=== PATIENT | male | born 1955 | race Caucasian/White ===

== ENCOUNTER 2024-09-03 20:13 | Inpatient (IN) | payer MEDICAID, MEDICARE ==
[~2024-09-03] VITALS: Ht 162.6 cm; Wt 86.8 kg
[~2024-09-03 20:13] MED LIST: ALBU2.5V12 NEB; ALBU6.7H14 INH; AMLO10TA PO; ASPI-611 PO; BENA40TA90 PO; CARV-49 PO; CITA20TA2 PO; HYDR-4353 PO; HYDR12.5 PO; LANTUS SQ; LORA10TA7 PO; MELO-102 PO; NIA500ERT PO; OMEP20TA43 PO; SIMV-45 PO; ZOLP10TA5 PO
--- NOTE | 2024-09-03 20:24 | ELECTROCARDIOGRAPH REPORT ---
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
[2024-09-03 20:46] LABS: BASOPHILS # (AUTO) 0.1 X10'3 (0-0.2); BASOPHILS % (AUTO) 1.3 % (0-1); EOSINOPHILS # (AUTO) 0.2 X10'3 (0-0.9); EOSINOPHILS % (AUTO) 2.4 % (0-6); HEMATOCRIT 42.9 % (42.0-52.0); HEMOGLOBIN 14.1 g/dl (14.0-17.9); LYMPHOCYTES # (AUTO) 2.4 X10'3 (1.1-4.8); LYMPHOCYTES % (AUTO) 30.4 % (21-51); MEAN CORPUSCULAR HEMOGLOBIN 25.5 PG (27.0-31.0); MEAN CORPUSCULAR HGB CONC 32.8 g/dL (33.0-36.5); MEAN CORPUSCULAR VOLUME 77.9 FL (78-98); MEAN PLATELET VOLUME 8.2 FL (7.4-10.4); MONOCYTES # (AUTO) 0.4 X10'3 (0-0.9); MONOCYTES % (AUTO) 5.5 % (2-12); NEUTROPHILS # (AUTO) 4.7 X10'3 (1.8-7.7); NEUTROPHILS % (AUTO) 60.4 % (42-75); PLATELET COUNT 327 X10'3 (140-440); RED BLOOD COUNT 5.51 X10'6 (4.70-6.10); RED CELL DISTRIBUTION WIDTH 16.2 % (11.5-14.5); WHITE BLOOD COUNT 7.8 X10'3 (4.5-11.0)
--- NOTE | 2024-09-03 20:54 | RADIOLOGY REPORT ---
CHEST RADIOGRAPH Indication: CP Technique: Single frontal view of the chest was obtained COMPARISON: None FINDINGS: Lines and Tubes: None. Sternotomy and CABG. Lungs: Clear Pleura: No effusion. No pneumothorax. Cardiomediastinal contours: Unremarkable IMPRESSION: No acute disease.
[2024-09-03 21:07] LABS: ALANINE AMINOTRANSFERASE 17 U/L (12-78); ALBUMIN 3.6 G/DL (3.4-5.0); ALBUMIN/GLOBULIN RATIO 0.9 (1.1-1.5); ALKALINE PHOSPHATASE 77 IU/L (46-116); ANION GAP 8 (8-16); ASPARTATE AMINO TRANSFERASE 17 U/L (10-37); BILIRUBIN,TOTAL 0.3 MG/DL (0.1-1.0); BLOOD UREA NITROGEN 18 MG/DL (7-18); BUN/CREATININE RATIO 19.4 (10.0-20.0); CALCIUM 8.7 MG/DL (8.5-10.1); CHLORIDE 99 MMOL/L (99-107); CREATININE 0.93 MG/DL (0.60-1.10); GLUCOSE 197 MG/DL (70-104); PRO BRAIN NATRIURETIC PEPTIDE 601 PG/ML (0-125); SODIUM 138 MMOL/L (135-145); TOTAL CARBON DIOXIDE 31.3 MMOL/L (24-32); TOTAL PROTEIN 7.4 G/DL (6.4-8.2); eGFR 81 ML/MIN
[2024-09-03 21:23] LABS: POTASSIUM 2.8 MMOL/L (3.5-5.1)
[2024-09-03] MEDS: Potassium Cl inj 40 MEQ in normal saline 500ml IV soln 500 ML IV STA (22:44)
--- NOTE | 2024-09-03 22:46 | ELECTROCARDIOGRAPH REPORT ---
[facility] Test Date: 2024-09-03 Test Time: 22:44:02 Pat Name: CIERA NAYAK Department: EMERGENCY ROOM [id number] Room: Gender: M Truck Rental Service Attendant: : 1955 Requested By: JUAN WAKEFIELD Order Number: [id number] Reading MD: Measurements Intervals [place] Rate: 83 P: 25 [place]: 160 QRS: 118 QRSD: 123 T: 33 QT: 395 QTc: 465 Interpretive Statements Sinus rhythm Paired ventricular premature complexes Aberrant complex Nonspecific intraventricular conduction delay Abnormal T, consider ischemia, lateral leads Please click the below link to view image of tracing.
[2024-09-03] MEDS: magnesium sulf-water 2g/50mL 50 ML IV STA (22:49)
[2024-09-03] MEDS: potassium CL 10mEq/100ml bag 100 ML IV STA (22:53)
[2024-09-03] MEDS: amiodarone 150mg/dext, iso-os 100 ML IV ONE (22:58)
--- NOTE | 2024-09-03 23:01 | Physician Documentation ---
History of Present Illness ~ Chief Complaint: Chest Pain Stated Complaint: CHEST PAIN Time Seen by MD: 22:53 HPI 69-year-old male, history of CAD/CABG, who presents with chest pain The patient tells me that he actually has been out of some of his heart medications over the past couple of weeks. He has been having intermittent episodes of chest pain and dizziness. I was called emergently to his room for evaluation, because he was in an episode of ventricular tachycardia. At that time he reported feeling very lightheaded and sweaty. He was reporting some central chest pressure. He later denies any fevers, or other infectious symptoms. He denies any current shortness of breath or leg swelling. He does not have an ICD Medication Reconciliation Allergies: Coded Allergies: No Known Allergies (Unverified , 05/24/14) Scheduled Albuterol Sulfate (Albuterol Sulfate), 1 VIAL NEB Q4H, (Reported) Albuterol Sulfate (Proventil Hfa), 2 PUFFS INH Q4H, (Reported) Amlodipine Besylate (Amlodipine Besylate), 1 TABLET PO DAILY, (Reported) Aspirin (Aspir 81), 1 TABLET PO DAILY, (Reported) Benazepril HCl (Benazepril HCl), 1 TABLET PO DAILY, (Reported) Carvedilol (Coreg), 1 TAB PO BID, (Reported) Citalopram Hydrobromide (Citalopram Hbr), 1 TABLET PO DAILY, (Reported) Hydrochlorothiazide (Hydrochlorothiazide), 1 CAP PO DAILY, (Reported) Hydrocodone Bit/Acetaminophen ([place] 10-325 Tablet), 1-2 TABLET PO Q4H, (Reported) Insulin Glargine,Hum.rec.anlog (Lantus Solostar), 25 UNIT SQ DAILY, (Reported) Loratadine (Loratadine), 1 TABLET PO DAILY, (Reported) Meloxicam (Meloxicam), 1 TABLET PO DAILY, (Reported) Niacin* (Niaspan*), 1 TAB PO BID, (Reported) Omeprazole (Omeprazole), 20 MG PO BID, (Reported) Simvastatin (Simvastatin), 40 MG PO DAILY, (Reported) Sulfamethoxazole/Trimethoprim (Bactrim Ds Tablet), 1 TAB PO Q12H Scheduled PRN Zolpidem Tartrate* (Ambien*), 1 TAB PO HS PRN for sleep, (Reported) Review of Systems Respiratory: Denies: shortness of breath Cardiovascular: Reports: chest pain, diaphoresis Gastrointestinal: Denies: abdominal pain Unable to obtain complete ROS: medical urgency Physical Exam Vital Signs: Temperature: 98.5, Heart Rate: 91, Respiratory Rate: 16, BP: 169/93, Pulse Oximetry: 96 Oxygen Flow Rate: 0 Physical Exam General: This is a chronically ill-appearing middle-aged man, who is currently in ventricular tachycardic, appears diaphoretic and unwell HEENT: Atraumatic, oropharynx appears dry Heart: Tachycardic, appears regular, appears ventricular tachycardia on the monitor with a heart rate in the 160s to 180s. Later, the patient spontaneously converts to normal sinus rhythm in the 80s to 90s. Lungs: Clear breath sounds bilateral, normal work of breathing, normal oxygen saturation on room air Abdomen: Soft, nondistended Skin: Diaphoretic and cool Neuro: Alert and oriented, no focal deficits Psychiatric: Appears uncomfortable but is cooperative with exam Progress Results/Orders Results/Orders Orders - DANNY THOMSON MD Chest,Single View (09/03/24 20:23) Monitor (09/03/24 20:23) Saline Lock (09/03/24 20:23) Oxygen (09/03/24 20:23) Hs Troponin I W Calculations (09/03/24 23:23) Amiodarone/D5 360mg/200ml Bag (Nexterone (09/03/24 23:15) Page Hospitalist (09/03/24 23:56) Completed Orders - DANNY THOMSON MD Chest,Single View (09/03/24 20:23) Cbc/Diff (09/03/24 20:23) PBNP (09/03/24 20:23) Electrocardiogram (09/03/24 20:23) CMP (09/03/24 20:23) Hs Troponin I W Calculations (09/03/24 20:23) Hs Troponin I W Calculations (09/03/24 22:23) Potassium Cl 10meq/100ml Bag (Potassium (09/03/24 22:43) Magnesium Sulf-Water 2g/50ml (Magnesium (09/03/24 22:44) Potassium Cl Inj (Potassium Cl Inj) (09/03/24 22:44) Free T4 (09/03/24 20:36) MG (09/03/24 20:36) TSH (09/03/24 20:36) Amiodarone 150mg/Dext, Iso-Os (Nexterone (09/03/24 22:55) Sulfamethox/Trimetho. Ds Tab (Septra Ds (09/03/24 23:40) Aspirin 81mg Chew Tablet (Aspirin 81mg C (09/04/24 00:21) Amiodarone 150mg/Dext, Iso-Os (Nexterone (09/04/24 00:25) Nicotine 14mg Patch-24hr (Habitrol Patch (09/04/24 00:25) Potassium Cl 40meq/1/2ns 520ml ([place] (09/04/24 00:25) Potassium Cl 40meq/1/2ns 520ml ([place] (09/04/24 00:29) BMP (09/04/24 02:00) Potassium Cl Sr Tablet (K-Dur Tablet) (09/04/24 02:50) Medications Received in ER Medications (Trade) Dose Ordered Sig/Brannon Route PRN Reason Start Time Stop Time Status Last Admin Dose Admin Potassium Chloride 100 ml @ 100 mls/hr ONCE STAT IV 09/03/24 22:43 09/03/24 23:42 DC 09/03/24 22:53 100 MLS/HR Magnesium Sulfate 50 ml @ 25 mls/hr ONCE STAT IV 09/03/24 22:44 09/04/24 00:43 DC 09/03/24 22:49 25 MLS/HR Amiodarone HCL/ Dextrose 100 ml @ 600 mls/hr ONCE ONCE IV 09/03/24 22:55 09/03/24 23:04 DC 09/03/24 22:58 600 MLS/HR Amiodarone HCL/ Dextrose 200 ml @ 0 mls/hr Q0M IV 09/03/24 23:15 09/04/24 05:38 17 MLS/HR (aspirin 81MG chew tablet) 324 mg ONCE STAT PO 09/04/24 00:21 09/04/24 00:22 DC 09/04/24 00:26 324 MG (Habitrol patch) 1 patch ONCE ONCE TD 09/04/24 00:25 09/04/24 00:26 DC 09/04/24 00:35 1 PATCH Potassium Chloride 520 ml @ ud STK-MED ONCE IV 09/04/24 00:25 09/04/24 04:24 DC 09/04/24 00:43 130 MLS/HR (K-DUR tablet) 40 meq ONCE STAT PO 09/04/24 02:50 09/04/24 02:58 DC 09/04/24 03:38 40 MEQ Vital Signs 09/03/24 09/03/24 09/04/24 09/04/24 20:23 21:26 02:01 02:02 Temp 98.5 98.5 Pulse 96 91 69 Resp 16 16 16 B/P (MAP) 154/66 169/93 (118) 101/81 (88) Pulse Ox 98 96 98 O2 Flow Rate 0 0 0 09/04/24 03:40 Temp 98.5 Pulse 66 Resp 14 B/P (MAP) 165/80 (108) Pulse Ox 97 O2 Flow Rate 0 Laboratory Tests Test 09/03/24 20:36 09/03/24 22:26 09/03/24 22:49 09/04/24 01:19 White Blood Count 7.8 Red Blood Count 5.51 Hemoglobin 14.1 Hematocrit 42.9 Mean Corpuscular Volume 77.9 L Mean Corpuscular Hemoglobin 25.5 L Mean Corpuscular Hemoglobin Concent 32.8 L Red Cell Distribution Width 16.2 H Platelet Count 327 Mean Platelet Volume 8.2 Neutrophils (%) (Auto) 60.4 Lymphocytes (%) (Auto) 30.4 Monocytes (%) (Auto) 5.5 Eosinophils (%) (Auto) 2.4 Basophils (%) (Auto) 1.3 H Neutrophils # (Auto) 4.7 Lymphocytes # (Auto) 2.4 Monocytes # (Auto) 0.4 Eosinophils # (Auto) 0.2 Basophils # (Auto) 0.1 CBC Comment Sodium Level 138 Potassium Level 2.8 *L Chloride Level 99 Carbon Dioxide Level 31.3 Anion Gap 8 Blood Urea Nitrogen 18 Creatinine 0.93 Estimated GFR/1.73 m2 81 BUN/Creatinine Ratio 19.4 Glucose Level 197 H Calcium Level 8.7 Magnesium Level 2.0 Total Bilirubin 0.3 Aspartate Amino Transf (AST/SGOT) 17 Alanine Aminotransferase (ALT/SGPT) 17 Alkaline Phosphatase 77 Troponin I High Sensitivity 28 30 33 Pro-B-Type Natriuretic Peptide 601 H Total Protein 7.4 Albumin 3.6 Globulin 3.8 Albumin/Globulin Ratio 0.9 L Thyroid Stimulating Hormone (TSH) 1.77 Free Thyroxine 0.93 Chemistry Comments Troponin I High Sens Percent Delta 7 10 Troponin I Hi Sens Absolute Change 2 3 Prothrombin Time 10.7 INR International Normalized Ratio 1.0 Activated Partial Thromboplast Time 25 D-Dimer 0.35 D-Dimer Comment Coagulation Comments Test 09/04/24 02:12 Sodium Level 139 Potassium Level 2.9 *L Chloride Level 101 Carbon Dioxide Level 31.9 Anion Gap 6 L Blood Urea Nitrogen 14 Creatinine 0.82 Estimated GFR/1.73 m2 > 90 BUN/Creatinine Ratio 17.1 Glucose Level 121 H Calcium Level 8.2 L Troponin I High Sensitivity 35 Troponin I High Sens Percent Delta 6 Troponin I Hi Sens Absolute Change 2 Albumin 3.4 Chemistry Comments EKG/XRAY/CT/US/VASC/MRI Chest X-Ray : Additional Comments I personally reviewed the x-ray, and it shows: No acute consolidation, no mediastinal widening, no pulmonary edema Consults/PCP Consults/PCP : Additional Comment Consult: 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 He requests a cardiology consult Consult: I spoke to the on-call machine heddle cleaner. He agrees with amiodarone, re commends lidocaine as a second-line agent for refractory ventricular tachycardia. He is concerned that we do not have an manager pricing here, and recommends considering transfer to higher level of care if possible for admission with EP consult. Consult: I spoke to the charge nurse and ER physician at emergency department in [place]. I discussed the case. They state that they do not have an on-call manager pricing. They feel that he will be more reasonable for the patient be admitted to our hospital, for treatment and electrolyte repletion. If transfer as needed at a later time, they recommend having our machine heddle cleaner co nsult their machine heddle cleaner to determine if a higher level of care is needed. Consult: I spoke again to the nighttime truck loader, who agrees for admission in the ICU. Medical Decision Making Differential Dx:Considerations: Include: angina, aortic dissection, CHF, myocardial infarction, pulmonary embolus Additional Information Differential includes dysrhythmia, electrolyte derangement, medication reaction Assessment 69-year-old male, significant cardiac history, presenting with chest pain and dizziness. Here in the ED, the patient had recurrent episodes of sustained ventricular tachycardia, where he was symptomatic but did not lose consciousness. He was treated with magnesium and amiodarone. Labs returned with significant hypokalemia and he was given IV and oral potassium repletion. He continued to have sustained ventricular tachycardia episodes, and so he was given a 2nd loading dose of amiodarone and was on an amiodarone drip. Labs otherwise unremarkable including normal troponins and no evidence of STEMI or acute coronary syndrome. See consults above. Ultimately, the patient was admitted here to the ICU for further treatment. Departure Time of Disposition: 23:38 Disposition: ADMITTED INPATIENT Admitted to Inpatient Unit: to truck loader Impression: Primary Impression: Ventricular tachycardia (paroxysmal) Additional Impressions: Chest pain Hypokalemia Condition: Improved Referrals: NO PRIMARY CARE PROVIDER (PCP) Education Educated: Patient, Family Educated regarding: diagnosis, treatment Critical Care Note Critical Care Note Critical Care Note The very real possibility of a deterioration of this patient's condition r equired the highest level of my preparedness for sudden, emergent intervention. I provided critical care services, which included medication orders, frequent reevaluations of the patient's condition and response to treatment, ordering and reviewing test results, and discussing the case with various consultants. Excludes time spent performing separately billable procedures. The critical care time associated with the care of the patient was 65 minutes in the management of recurrent ventricular tachycardia and imminent cardiac arrest Signature Scribe Signature: torsten Attestation: DANNY Odell MD September 03, 2024 23:01
[2024-09-03 23:11] LABS: APTT 25 SECONDS (22-32); D-DIMER 0.35 MG/L FEU (0-0.50); PROTHROMBIN TIME 10.7 SECONDS (9.0-12.0)
[2024-09-03 23:15] LABS: FREE T4 (FREE THYROXINE) 0.93 NG/DL (0.73-1.40); THYROID STIMULATING HORMONE 1.77 ulU/ml (0.34-4.50)
[2024-09-03] MEDS: amiodarone/D5 360MG/200ML BAG 200 ML IV SCH (23:15)
[2024-09-03] MEDS ORDERED: SULF1TAB49 PO (23:40)
[2024-09-03] MEDS ORDERED: sulfamethoxazole/trimethoprim DS (800/160mg) tablet PO ONE (23:40)
[2024-09-03] MEDS: sulfamethoxazole/trimethoprim DS (800/160mg) tablet PO ONE (23:46)
[2024-09-04] VITALS (13 sets, daily range): BP systolic 120–161; BP diastolic 49–65; PULSE 57–74; RESP 12–18; TEMP 97.4–97.9; O2SAT 95–99
[2024-09-04] MEDS: amiodarone 150mg/dext, iso-os 100 ML IV ONE (00:25)
[2024-09-04] MEDS: aspirin 81mg tab.chew PO STA (00:26)
[2024-09-04] MEDS: potassium Cl 40MEQ/1/2NS 520ml 520 ML IV ONE ×2 (00:29→00:43)
[2024-09-04] MEDS: nicotine 14mg patch - 24hr TD ONE (00:35)
[2024-09-04 02:28] LABS: ALBUMIN 3.4 G/DL (3.4-5.0); ANION GAP 6 (8-16); BLOOD UREA NITROGEN 14 MG/DL (7-18); BUN/CREATININE RATIO 17.1 (10.0-20.0); CALCIUM 8.2 MG/DL (8.5-10.1); CHLORIDE 101 MMOL/L (99-107); CREATININE 0.82 MG/DL (0.60-1.10); GLUCOSE 121 MG/DL (70-104); SODIUM 139 MMOL/L (135-145); TOTAL CARBON DIOXIDE 31.9 MMOL/L (24-32); eGFR > 90 ML/MIN
[2024-09-04 02:33] LABS: POTASSIUM 2.9 MMOL/L (3.5-5.1)
[2024-09-04] MEDS: potassium Cl 20 mEq SR tablet PO STA (03:38)
[2024-09-04] MEDS ORDERED: magnesium Cl slow-release 64mg tablet PO PRN (04:25)
[2024-09-04] MEDS ORDERED: magnesium sulf-water 4G/100mL 100 ML IV PRN (04:25)
[2024-09-04] MEDS ORDERED: potassium Cl 20 mEq SR tablet PO PRN ×2 (04:25→08:00)
[2024-09-04] MEDS ORDERED: magnesium sulf-water 2g/50mL 50 ML IV PRN ×2 (04:25→08:00)
[2024-09-04] MEDS ORDERED: potassium Cl 40MEQ/1/2NS 520ml 520 ML IV PRN (04:25)
[2024-09-04] MEDS: PERFLUTREN PROTEIN-A MICROSPHR (Optison) 0.22 MG/ML 3ML VIAL IV ONE (04:40)
--- NOTE | 2024-09-04 05:03 | CONSULTATION REPORT - RESIDENT ---
Consult Providers to CC Resident Creating Document: OBDULIO GENAO MD CC: OBDULIO GENAO MD 69 M with an extensive cardiac hx we are seeining in the ER today Said to be having runs of VTach when he was put on the traffic monitor specialist He has been complaining of chest pain and some shortness of breath He has CAD and has had CABG and a hx of CHF As pe the patient he had been off his meds for a month He was complaining of feeling dizzy and havbing chest tightness at the time he was seen in the ER He was found to have severe hypokalemia He was replaced for K in the interval since he came to the hospital he has received 90 meq of K He got an amiodarone bolus and started on a drip He has had the drip run for 6 hours I saw him by the viodeo He says he is feeling better. He says he did have some chest tightness at the time he was first seen in the ER but it is getting beter. He is hemodynamically stable Laboratory Tests Test 09/03/24 20:36 09/03/24 22:26 09/03/24 22:49 09/04/24 01:19 White Blood Count 7.8 X10'3 (4.5-11.0) Red Blood Count 5.51 X10'6 (4.70-6.10) Hemoglobin 14.1 g/dl (14.0-17.9) Hematocrit 42.9 % (42.0-52.0) Mean Corpuscular Volume 77.9 FL (78-98) Mean Corpuscular Hemoglobin 25.5 PG (27.0-31.0) Mean Corpuscular Hemoglobin Concent 32.8 g/dL (33.0-36.5) Red Cell Distribution Width 16.2 % (11.5-14.5) Platelet Count 327 X10'3 (140-440) Mean Platelet Volume 8.2 FL (7.4-10.4) Neutrophils (%) (Auto) 60.4 % (42-75) Lymphocytes (%) (Auto) 30.4 % (21-51) Monocytes (%) (Auto) 5.5 % (2-12) Eosinophils (%) (Auto) 2.4 % (0-6) Basophils (%) (Auto) 1.3 % (0-1) Neutrophils # (Auto) 4.7 X10'3 (1.8-7.7) Lymphocytes # (Auto) 2.4 X10'3 (1.1-4.8) Monocytes # (Auto) 0.4 X10'3 (0-0.9) Eosinophils # (Auto) 0.2 X10'3 (0-0.9) Basophils # (Auto) 0.1 X10'3 (0-0.2) CBC Comment Sodium Level 138 MMOL/L (135-145) Potassium Level 2.8 MMOL/L (3.5-5.1) Chloride Level 99 MMOL/L (99-107) Carbon Dioxide Level 31.3 MMOL/L (24-32) Anion Gap 8 (8-16) Blood Urea Nitrogen 18 MG/DL (7-18) Creatinine 0.93 MG/DL (0.60-1.10) Estimated GFR/1.73 m2 81 ML/MIN BUN/Creatinine Ratio 19.4 (10.0-20.0) Glucose Level 197 MG/DL (70-104) Calcium Level 8.7 MG/DL (8.5-10.1) Magnesium Level 2.0 MG/DL (1.5-2.4) Total Bilirubin 0.3 MG/DL (0.1-1.0) Aspartate Amino Transf (AST/SGOT) 17 U/L (10-37) Alanine Aminotransferase (ALT/SGPT) 17 U/L (12-78) Alkaline Phosphatase 77 IU/L (46-116) Troponin I High Sensitivity 28 ng/L (4-75) 30 ng/L (4-75) 33 ng/L (4-75) Pro-B-Type Natriuretic Peptide 601 PG/ML (0-125) Total Protein 7.4 G/DL (6.4-8.2) Albumin 3.6 G/DL (3.4-5.0) Globulin 3.8 G/DL (2.7-4.3) Albumin/Globulin Ratio 0.9 (1.1-1.5) Thyroid Stimulating Hormone (TSH) 1.77 ulU/ml (0.34-4.50) Free Thyroxine 0.93 NG/DL (0.73-1.40) Chemistry Comments Troponin I High Sens Percent Delta 7 % 10 % Troponin I Hi Sens Absolute Change 2 ng/L 3 ng/L Prothrombin Time 10.7 SECONDS (9.0-12.0) INR International Normalized Ratio 1.0 INR Activated Partial Thromboplast Time 25 SECONDS (22-32) D-Dimer 0.35 MG/L FEU (0-0.50) D-Dimer Comment Coagulation Comments Test 09/04/24 02:12 Sodium Level 139 MMOL/L (135-145) Potassium Level 2.9 MMOL/L (3.5-5.1) Chloride Level 101 MMOL/L (99-107) Carbon Dioxide Level 31.9 MMOL/L (24-32) Anion Gap 6 (8-16) Blood Urea Nitrogen 14 MG/DL (7-18) Creatinine 0.82 MG/DL (0.60-1.10) Estimated GFR/1.73 m2 > 90 ML/MIN BUN/Creatinine Ratio 17.1 (10.0-20.0) Glucose Level 121 MG/DL (70-104) Calcium Level 8.2 MG/DL (8.5-10.1) Troponin I High Sensitivity 35 ng/L (4-75) Troponin I High Sens Percent Delta 6 % Troponin I Hi Sens Absolute Change 2 ng/L Albumin 3.4 G/DL (3.4-5.0) Chemistry Comments History of Present Illness Reason for Admit\Complaint: Vtach History of Present Illness 69 M with an extensive cardiac hx we are seeining in the ER today Said to be having runs of VTach when he was put on the traffic monitor specialist He has been complaining of chest pain and some shortness of breath He has CAD and has had CABG and a hx of CHF As pe the patient he had been off his meds for a month He was complaining of feeling dizzy and havbing chest tightness at the time he was seen in the ER He was found to have severe hypokalemia He was replaced for K in the interval since he came to the hospital he has received 90 meq of K He got an amiodarone bolus and started on a drip He has had the drip run for 6 hours I saw him by the vikevano He says he is feeling better. He says he did have some chest tightness at the time he was first seen in the ER but it is getting beter. He is hemodynamically stable Laboratory Tests Allergies: Coded Allergies: No Known Allergies (Unverified , 05/24/14) Home Medications Home Medications Active Bactrim Ds Tablet (Sulfamethoxazole/Trimethoprim) 800 Mg-160 Mg Tablet 1 Tab PO Q12H 10 Days Reported Lantus Solostar (Insulin Glargine,Hum.rec.anlog) 300 Unit/3 Ml Insuln.pen 25 Unit SQ DAILY Proventil Hfa (Albuterol Sulfate) 6.7 Gm Hfa.aer.ad 2 Puffs INH Q4H Albuterol Sulfate (Albuterol) 2.5 Mg/0.5 Ml Vial.neb 1 Vial NEB Q4H Citalopram Hbr (Citalopram Hydrobromide) 20 Mg Tablet 1 Tablet PO DAILY Meloxicam 15 Mg Tablet 1 Tablet PO DAILY Benazepril HCl 40 Mg Tablet 1 Tablet PO DAILY Simvastatin 40 Mg Tablet 40 Mg PO DAILY Niaspan* (Niacin) 500 Mg Tablet 1 Tab PO BID Omeprazole 20 Mg Tablet.dr 20 Mg PO BID Amlodipine Besylate 10 Mg Tablet 1 Tablet PO DAILY [place] 10-325 Tablet (Acetaminophen/Hydrocodone Bitart) 1 Each Tablet 1-2 Tablet PO Q4H Coreg (Carvedilol) 6.25 Mg Tablet 1 Tab PO BID Ambien* (Zolpidem Tartrate) 10 Mg Tablet 1 Tab PO HS PRN Loratadine 10 Mg Tablet 1 Tablet PO DAILY Hydrochlorothiazide 12.5 Mg Capsule 1 Cap PO DAILY Aspir 81 (Aspirin) 81 Mg Tablet.dr 1 Tablet PO DAILY Past Medical History Past Medical History Current Medications Medications (Trade) Dose Ordered Sig/Brannon Route PRN Reason Start Time Stop Time Status Last Admin Dose Admin Potassium Chloride 100 ml @ 100 mls/hr ONCE STAT IV 09/03/24 22:43 09/03/24 23:42 DC 09/03/24 22:53 100 MLS/HR Magnesium Sulfate 50 ml @ 25 mls/hr ONCE STAT IV 09/03/24 22:44 09/04/24 00:43 DC 09/03/24 22:49 25 MLS/HR Amiodarone HCL/ Dextrose 100 ml @ 600 mls/hr ONCE ONCE IV 09/03/24 22:55 09/03/24 23:04 DC 09/03/24 22:58 600 MLS/HR Amiodarone HCL/ Dextrose 200 ml @ 0 mls/hr Q0M IV 09/03/24 23:15 09/03/24 23:35 1 MLS/HR Aspirin (aspirin 81MG chew tablet) 324 mg ONCE STAT PO 09/04/24 00:21 09/04/24 00:22 DC 09/04/24 00:26 324 MG Nicotine (Habitrol patch) 1 patch ONCE ONCE TD 09/04/24 00:25 09/04/24 00:26 DC 09/04/24 00:35 1 PATCH Potassium Chloride 520 ml @ ud STK-MED ONCE IV 09/04/24 00:25 09/04/24 04:24 DC 09/04/24 00:43 130 MLS/HR Potassium Chloride (K-DUR tablet) 40 meq ONCE STAT PO 09/04/24 02:50 09/04/24 02:58 DC 09/04/24 03:38 40 MEQ Exam Vitals: Vital Signs Date Time Temp Pulse Resp B/P (MAP) Pulse Ox O2 Delivery O2 Flow Rate FiO2 09/04/24 03:40 98.5 66 14 165/80 (108) 97 0 Diagnostic Data Last Recorded Lab Results: 09/03/[id number]/04/24211 Diagnostic Data: Laboratory Tests Test 09/03/24 22:49 Prothrombin Time 10.7 SECONDS (9.0-12.0) INR International Normalized Ratio 1.0 INR Activated Partial Thromboplast Time 25 SECONDS (22-32) D-Dimer 0.35 MG/L FEU (0-0.50) D-Dimer Comment Coagulation Comments Additional Plan Runs of V tach Pt with hx of CHF and CAD At this time will check EKGs and TRoponin Repeat Echo CXR was done and was clear Likely log driver of V tach was his hypokalemia This has been replaced Continue Amiodarone infusion for total 24 hours and then we can discus transitioning to orals Also has received Mg Keep Mg >2, K >4 will see what his K is after these 90meq I resumed his Amlodipine, Coreg, We will consult cardiology we will monitor and cycle cardiac enzymes and peg driver in ICU - admission orders placed Cardiac Diet at this time Sepsis Screening Reassessment Date: September 04, 2024 Skin Color: Normal Date of Service: September 04, 2024 Billing Provider: OBDULIO GENAO MD Common Visit Codes: [id number] CARE 30-74 MIN OBDULIO GENAO MD September 04, 2024 05:03
[2024-09-04 06:01] LABS: ALANINE AMINOTRANSFERASE 14 U/L (12-78); ALBUMIN 3.2 G/DL (3.4-5.0); ALKALINE PHOSPHATASE 71 IU/L (46-116); ANION GAP 6 (8-16); ASPARTATE AMINO TRANSFERASE 15 U/L (10-37); BILIRUBIN,TOTAL 0.2 MG/DL (0.1-1.0); BLOOD UREA NITROGEN 11 MG/DL (7-18); BUN/CREATININE RATIO 15.3 (10.0-20.0); CALCIUM 7.8 MG/DL (8.5-10.1); CHLORIDE 104 MMOL/L (99-107); CREATININE 0.72 MG/DL (0.60-1.10); GLUCOSE 117 MG/DL (70-104); MAGNESIUM 2.1 MG/DL (1.5-2.4); POTASSIUM 3.7 MMOL/L (3.5-5.1); SODIUM 140 MMOL/L (135-145); TOTAL CARBON DIOXIDE 30.2 MMOL/L (24-32); TOTAL PROTEIN 6.4 G/DL (6.4-8.2); eGFR > 90 ML/MIN
[2024-09-04] MEDS: acetaminophen 325mg tablet PO PRN ×2 (07:42→21:07)
[2024-09-04] MEDS: carvedilol 6.25mg tablet PO SCH (07:42)
[2024-09-04] MEDS: pantoprazole 40mg Tablet.DR PO SCH (07:42)
[2024-09-04] MEDS: amLODIPine 5mg tablet PO SCH (07:42)
[2024-09-04] MEDS: lisinopril 20mg tablet PO SCH (07:42)
[2024-09-04] MEDS: K and/or MAG REPLACEMENT MC SCH (08:00)
[2024-09-04] MEDS: albuterol 2.5 MG/3 ML nebule NEB SCH (08:43)
[2024-09-04] MEDS: insulin glargine (Lantus) pen - multi-dose SQ SCH (08:53)
--- NOTE | 2024-09-04 09:54 | CONSULTATION REPORT ---
History of Present Illness Providers to CC CC: RAMOS SHI MD; DANNY GOODMAN MD ~ Reason for Admit\Admit Dx: Vtach Refering MD: mamadou [facility] History of Present Illness The patient is a 69-year-old male with a history of CAD status post CABG in 2014, hypertension, dyslipidemia, diabetes mellitus, and tobacco abuse who presented to the emergency department with complaints of dizziness and lightheadedness and overall fatigue that had been ongoing intermittently for the last one month. Of note, the patient mentions that he has not been taking his medications for the last one month due to financial constraints. In the emergency room, the patient was noted to have runs of ventricular tachycardia and was also noted to have a severely low potassium of 2.8. The patient was started on an amiodarone drip and his potassium was repleted. He was also given magnesium as well as calcium gluconate. He was ruled out with serial cardiac enzymes. The patient is currently resting comfortably. He does have occasional noted PVCs on his air sampling and monitoring. However, there appeared to be no further runs of ventricular tachycardia. The patient was also restarted on all his cardiac medications including his carvedilol and lisinopril. The patient states he routinely follows with his primary eye care professional, Dr. Goodman. He states Dr. Goodman was the one who placed the stents in his heart and also referred him for bypass when it was necessary. He states he has followed with Dr. Goodman post bypass and continues to follow with him. The patient states he has had a stress test post bypass but can not recall the exact date of the stress test. The patient denies any chest pain, pressure, tightness, discomfort, heaviness. He denies any shortness of breath. Allergies: Coded Allergies: No Known Allergies (Unverified , 05/24/14) Home Medications Home Medications Active Reported Lantus Solostar (Insulin Glargine,Hum.rec.anlog) 300 Unit/3 Ml Insuln.pen 25 Unit SQ DAILY Proventil Hfa (Albuterol Sulfate) 6.7 Gm Hfa.aer.ad 2 Puffs INH Q4H Albuterol Sulfate (Albuterol) 2.5 Mg/0.5 Ml Vial.neb 1 Vial NEB Q4H Citalopram Hbr (Citalopram Hydrobromide) 20 Mg Tablet 1 Tablet PO DAILY Meloxicam 15 Mg Tablet 1 Tablet PO DAILY Benazepril HCl 40 Mg Tablet 1 Tablet PO DAILY Simvastatin 40 Mg Tablet 40 Mg PO DAILY Niaspan* (Niacin) 500 Mg Tablet 1 Tab PO BID Omeprazole 20 Mg Tablet.dr 20 Mg PO BID Amlodipine Besylate 10 Mg Tablet 1 Tablet PO DAILY [place] 10-325 Tablet (Acetaminophen/Hydrocodone Bitart) 1 Each Tablet 1-2 Tablet PO Q4H Coreg (Carvedilol) 6.25 Mg Tablet 1 Tab PO BID Ambien* (Zolpidem Tartrate) 10 Mg Tablet 1 Tab PO HS PRN Loratadine 10 Mg Tablet 1 Tablet PO DAILY Hydrochlorothiazide 12.5 Mg Capsule 1 Cap PO DAILY Aspir 81 (Aspirin) 81 Mg Tablet.dr 1 Tablet PO DAILY Past Medical History Medical History Comment 1. Coronary artery disease status post coronary artery bypass grafting 2. Hypertension 3. Dyslipidemia 4. Type 2 diabetes mellitus 5. Tobacco abuse Past Surgical History Surgical History Comment 1. Coronary artery bypass graft 2. Orthopedic procedure Past Family History Family History Comment Noncontributory Past Social History Social History Comment The patient lives at home with his . He denies any illicit drug use. Does admit to smoking 1-1.5 packs of cigarettes per day. Physical Exam Last Vital Signs Recorded: Temperature: 98.5, Source: Oral, Heart Rate: 60, Respiratory Rate: 18, BP: 167/76, Pulse Oximetry: 98, Weight: 86.820 General Appearance: alert EENT: moist mucous membranes Respiratory: lungs clear Cardiovascular: regular rate, rhythm Gastrointestinal: non-tender, bowels sounds present Rectal: deferred Extremities: no edema Neurologic: oriented x4 Review of Systems ROS ROS Comments: A full 12 point review of systems was performed and was negative unless otherwise mentioned in the HPI Results Diagram Lab Result Diagram: 09/03/24203509/04/24 0536 Lab Results Trop HS x3 negative Other Procedure Comments: EKG: NSR with non-specific ST-T changes Telemetry Strip reviewed and did reveal a wide complex tachycardia consistent with ventricular tachycardia Assessment/Plan Additional Plan The patient is a 69-year-old male who follows with his primary eye care professional, Dr. Goodman, and has a past medical history significant for CAD status post CABG, hypertension, hyperlipidemia, diabetes mellitus, and tobacco abuse who presented with dizziness/lightheadedness and was found to have severe hypokalemia and noted runs of ventricular tachycardia. 1. Ventricular tachycardia -the patient did have noted runs of ventricular tachycardia that responded well to amiodarone and improved following repletion of his potassium -would aim to keep his potassium > 4 and his magnesium >2 -continue amiodarone drip and transition to oral amiodarone of 200 mg one tablet twice daily following completion of 24 hours of amiodarone drip -continue with carvedilol for beta blockade purposes to suppress some of the ectopy and VT -once further stable, the patient will require an ischemic evaluation. We will defer that to his primary eye care professional, Dr. Goodman -obtain an echocardiogram to assess his ejection fraction 2. Hypokalemia -the patient had severe hypokalemia upon presentation, which was a likely contributing factor to his ventricular tachycardia -replete his potassium aggressively and aim for a overall potassium of > 4 -please ensure his magnesium is > 2 3. CAD status post CABG -continue aspirin 81 mg -high-intensity statin -continue carvedilol -continue amlodipine and lisinopril 4. Hypertension -treatment as per primary/admitting service 5. Dyslipidemia -continue high-intensity statin for a goal LDL of less than 55 6. Diabetes mellitus -treatment as per primary/admitting service 7. Tobacco use -tobacco cessation was strongly discussed and advised -the risks of continued tobacco abuse were discussed with the patient 8. Medication noncompliance The patient was seen and evaluated in the emergency room. Findings were discussed with the patient in detail. The patient mentions that he follows with Dr. Goodman and would like to have Dr. Goodman's input in regards to his care when he arrives. Will be available through the holiday for any questions or concerns that may arise. Would recommend touching base with his primary eye care professional, Dr. Goodman, tomorrow morning for further care. RICHARD SMITH MD September 04, 2024 09:54
--- NOTE | 2024-09-04 11:33 | PROGRESS NOTE- Residence ---
Progress Note - Resident Providers to CC Resident Creating Document: HI ALMAZANTIKNEVAEH ~ Antibiotic Timeout Antibiotic Ordered?: No Subjective Patient is seen and examined at the bedside today. Resting comfortably, denied any chest pain, palpitations, nausea, vomiting. Denied any other concerns or complaints at the moment. Objective Vital Signs Date Time Temp Pulse Resp B/P (MAP) Pulse Ox O2 Delivery O2 Flow Rate FiO2 09/04/24 10:35 63 09/04/24 09:25 18 167/76 (106) 98 09/04/24 08:44 Room Air* 0 21 09/04/24 05:46 98.5 Result Diagram: 09/03/24203509/04/24 0536 General: Awake and Alert, no acute distress. HEENT: Conjunctiva pink, Sclera clear, Mucus Membranes moist. Neck: Supple without masses and tenderness. Resp: Unlabored. Lungs clear to auscultation bilaterally. Heart: Regular Rate and rhythm, normal S1 and S2 without murmur, rub or gallop. Abdomen: Soft and non tender no organomegaly Extremities: No cyanosis,clubbing or edema. Skin: Warm and Dry. Coagulation Studies Laboratory Tests Test 09/03/24 22:49 Prothrombin Time 10.7 SECONDS (9.0-12.0) INR International Normalized Ratio 1.0 INR Activated Partial Thromboplast Time 25 SECONDS (22-32) D-Dimer 0.35 MG/L FEU (0-0.50) D-Dimer Comment Coagulation Comments Assessment Assessment 69-year-old male past medical history of coronary artery disease status post CABG, hypertension, hyperlipidemia, type 2 diabetes mellitus is admitted in the hospital for evaluation management of ventricular tachycardia, hypokalemia. Plan Plan Ventricular tachycardia Hypokalemia The most likely cause patient's V-tach was severe hypokalemia at the time of presentation. The patient's potassium at the time of admission was 2.8. He has been treated with a potassium replacement therapy and it is currently at 3.7. Started the patient on IV amiodarone drip. Recommend to continue to total 24 hours and then convert to p.o.. The on-call scientific investigator Dr. Yousif was consulted. Appreciate recommendations. The patient's scientific investigator is Dr. Christensen. The patient has been in sinus rhythm with a occasional PVCs since replenishing the potassium. Continue monitoring on telemetry. Follow up with the ECHO. Continue to monitor the patient's electrolytes closely. The patient can be downgraded from the ICU to the PCU unit. Hospitalist, Dr. Flowers has been consulted. Coronary artery disease status post CABG Hyperlipidemia Hypotension The troponins has been negative. Restarted the patient on aspirin 81 mg p.o. daily and simvastatin 40 mg p.o. daily. Started him on Coreg 6.25 mg p.o. b.i.d. and lisinopril 40 mg p.o. daily. Restarted home dose of amlodipine 10 mg p.o. daily. Continue close monitoring of the patient's vitals. Follow up with the ECHO to check for any wall motion abnormalities. The on-call scientific investigator has been consulted. Appreciate recommendations. Diabetes mellitus Patient is started on his home dose of Lantus 25 units subQ daily. We will also start him on the sliding scale. Follow up A1c. CODE STATUS: Full code DVT prophylaxis: SCDs underlying ambulatory GI prophylaxis: Protonix Diet: Carb controlled diet Disposition: The patient's condition is stable currently can be transferred/downgraded from the ICU to the PCU unit. The hospitalist has been consulted. Hi Almazan MD Internal Medicine Resident, PGY-2 Date of Service: September 04, 2024 Billing Provider: SLAVA WINTERS MD,HI JORGE, RES September 04, 2024 11:33
[2024-09-04] MEDS ORDERED: dextrose 50%-water 50ml dispensing syringe IV PRN ×2 (11:35)
[2024-09-04] MEDS ORDERED: DEXTROSE 15 GM of carb/4 tabs (each vial/BOTTLE has 4 tablets) PO PRN ×2 (11:35)
[2024-09-04] MEDS ORDERED: glucagon, human recombinant 1mg kit SUBCUT PRN (11:35)
[2024-09-04] MEDS: INSULIN LISPRO 100 UNIT/ML INSULN.PEN MULTI-DOSE SQ SCH (12:00)
--- NOTE | 2024-09-04 12:18 | HISTORY AND PHYSICAL ---
History & Physical Providers to CC ~ History of Present Illness Reason for Admit\Complaint: Chest pain History of Present Illness History of present illness patient is a pleasant 69-year-old gentleman with a longstanding history of diabetes hypertension hyperlipidemia CAD status post CABG nicotine abuse. Patient states he ran out of his medications because medical stop paying for them. He says initially he was on medical but in his got a job but then his got sick and could not go to her job so she could not get money either from medical or from her job so they ran out of money so he ran out of medications. He says though he does not feel good he started having chest pain about 30 days ago it is kind of worsened he became fatigue he became short of breath and he finally decided to come to the emergency room where he was noted to be in V-tach and started on an amiodarone drip. He was seen in consultation by the construction plant operator on-call Dr. SMITH. Was also supposed to be admitted to the ICU and was seen in consultation by the provider relations advocate. The provider relations advocate called me and said he was being downgraded to PCU and I should take over his care. Amiodarone helped there has been no rub further run of V-tach. He did have severe hypokalemia and this was replaced in the ER. Probably also leading to V-tach. Allergies: Coded Allergies: No Known Allergies (Unverified , 05/24/14) Home Medications Home Medications Active Reported Lantus Solostar (Insulin Glargine,Hum.rec.anlog) 300 Unit/3 Ml Insuln.pen 25 Unit SQ DAILY Proventil Hfa (Albuterol Sulfate) 6.7 Gm Hfa.aer.ad 2 Puffs INH Q4H Albuterol Sulfate (Albuterol) 2.5 Mg/0.5 Ml Vial.neb 1 Vial NEB Q4H Citalopram Hbr (Citalopram Hydrobromide) 20 Mg Tablet 1 Tablet PO DAILY Meloxicam 15 Mg Tablet 1 Tablet PO DAILY Benazepril HCl 40 Mg Tablet 1 Tablet PO DAILY Simvastatin 40 Mg Tablet 40 Mg PO DAILY Niaspan* (Niacin) 500 Mg Tablet 1 Tab PO BID Omeprazole 20 Mg Tablet.dr 20 Mg PO BID Amlodipine Besylate 10 Mg Tablet 1 Tablet PO DAILY [place] 10-325 Tablet (Acetaminophen/Hydrocodone Bitart) 1 Each Tablet 1-2 Tablet PO Q4H Coreg (Carvedilol) 6.25 Mg Tablet 1 Tab PO BID Ambien* (Zolpidem Tartrate) 10 Mg Tablet 1 Tab PO HS PRN Loratadine 10 Mg Tablet 1 Tablet PO DAILY Hydrochlorothiazide 12.5 Mg Capsule 1 Cap PO DAILY Aspir 81 (Aspirin) 81 Mg Tablet. 1 Tablet PO DAILY Past Medical History Past Medical History Past medical history diabetes hypertension hyperlipidemia CAD status post multiple stents placed by Dr. Christensen though he does not know how many osteoarthritis nicotine abuse Past surgical history he has had a four vessel CABG bilateral knees replaced stents placed prior to the CABG. 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 EOMI. CVS first and second heart sounds are regular rate rhythm there is no murmurs gallops or rubs Respiratory system is clear to auscultate bilaterally there is no rales rhonchi crackles or wheezing Abdomen is soft obese bowel sounds are positive nontender nondistended no fluid thrill no masses appreciated Extremities no clubbing cyanosis or edema Neurological exam there is no focal deficits Skin is warm intact Diagnostic Data Last Recorded Lab Results: 09/03/24203509/04/24535 Diagnostic Data: Laboratory Tests Test 09/03/24 22:49 Prothrombin Time 10.7 SECONDS (9.0-12.0) INR International Normalized Ratio 1.0 INR Activated Partial Thromboplast Time 25 SECONDS (22-32) D-Dimer 0.35 MG/L FEU (0-0.50) D-Dimer Comment Coagulation Comments Additional Plan Assessment and plan -V-tach Continue IV amiodarone Dr. Smith consult appreciated -hypokalemia Replace per protocol -hypomagnesemia Replace per protocol Aim to keep the Mag more than two -diabetes Start the patient on hyper/hypoglycemia protocol Check Accu-Cheks q.a.c. q.h.s. Carb consistent diet Check hemoglobin A1c -hypertension Resume home meds Use clonidine p.r.n. -hyperlipidemia Check lipid panel Continue high dose statins -nicotine abuse Patient really needs to stop smoking I tried to discuss with him for abstinence I offered him a patch Nicoderm gum Patient says he would like to but he really can not and he is too tired to discuss it right now -patient is started on DVT prophylaxis Patient is a full code We will need to get a forensic social worker consult to assist with patient's medications prior to him being discharged Sepsis Screening Skin Color: Normal Date of Service: September 04, 2024 Billing Provider: MAURICE RASCON MD Common Visit Codes: [id number] INP/OBS CARE (HIGH) MAURICE RASCON MD September 04, 2024 12:18
--- NOTE | 2024-09-04 16:11 | CARDIOLOGY REPORT ---
APPROVED REPORT EXAM: Comprehensive 2D, Doppler, and color-flow Echocardiogram. Patient Location: [address] Blood Pressure: 167/76 mmHg Heart Rate: 58 bpm Rhythm: Sinus Bradycardia with occasional PVC's Indications Ventricular Tachycardia Chest Pain Hypokalemia Hx of CABG (2014) Hypertension Diabetes Mellitus II Chore Worker: Nu Christensen MD Consult with Ashia Yousif MD Previous echo: None 2D Dimensions RVDd 3.4 cm LA Diam4.3 cm IVSd 1.4 (0.7-1.1cm) LVDd 6.0 cm PWd 1.4 (0.7-1.1cm) RA Minor3.8 cm LVOT Diameter 2.19 (1.8-2.4cm) IVC 22.31 mm CO 5.3 L/min M-Mode Dimensions IVSd 1.37 (0.7-1.1cm) LVDd 6.62 (4.0-5.6cm) PWd 1.33 (0.7-1.1cm) IVSs 1.72 cm MV EPSS 1.2 (<0.5cm) LVDs 4.99 (2.0-3.8cm) FS (%) 23 % PWs 1.65 cm ESV(Teich) 113.2 ml LVEF(%) 44 (>50%) Aortic Valve AoV Peak Jian. 162.3 cm/s AoV VTI 36.2 cm AO Peak GR. 10.5 mmHg AO Mean GR. 6 mmHg LVOT VTI 26.05 cm LVOT Peak Jian. 110.2 cm/s SPIKE(VTI)/BSA 2.72 cm2/m2 SPIKE (VTI) 2.72 cm2 Mitral Valve MV E Velocity 93.8 cm/s MV Peak Gr. 4 mmHg MV DECEL TIME 232 ms MV A Velocity 59.3 cm/s MV Mean Gr. 1 mmHg MV PHT 72 ms E/A Ratio 1.6 MVA (PHT) 3.06 cm2 MV IWft601.2 cm/sMV VMean50.8 cm/s MVA VTI3.05 cm2MV VTI32.3 cm TDI Lateral E' P. V10.54 cm/s Medial E' P. V 7.90 cm/s E/Lateral E' 8.9 E/Medial E' 11.9 Tricuspid Valve TR P. Velocity 226 cm/s RAP ESTIMATE 15 mmHg TR Peak Gr. 20 mmHg RVSP 35 mmHg Pulmonary Vein S1 Velocity 58.0 cm/s D2 Velocity 50.7 cm/s PVa Lywjdekl69.5 cm/s PVa [id number] msec LEFT VENTRICLE The LV is dilated in size with mildly reduced function. Mid and basal inferolateral segments appear h ypo- to akinetic. Mid and basal inferoseptal segments appear hypokinetic. Mild concentric hypertroph y. Overall LVEF is 40-45%. RIGHT VENTRICLE Right ventricle is mildly dilated with adequate function. Estimated PA systolic pressure is 35 mmHg. ATRIA Left atrium is mildly dilated. The right atrium size is normal. AORTIC VALVE Probable trileaflet AV appears sclerotic and mildly calcified. No stenosis or insufficiency. MITRAL VALVE Mild MV annular and Chord thickening. No stenosis. Mild regurgitation. PULMONIC VALVE Normal PV without stenosis, physiologic insufficiency. GREAT VESSELS The aortic root is normal in size. IVC is dilated and collapses less than 50% with inspiration. PERICARDIUM Normal pericardium. No pericardial effusion seen. Other Information Study Quality: Adequate Conclusion The LV is dilated in size with mildly reduced function. Mid and basal inferolateral segments appear hypo- to akinetic. Mid and basal inferoseptal segments appear hypokinetic. Mild concentric hypert rophy. Overall LVEF is 40-45%. Right ventricle is mildly dilated with adequate function. Estimated PA systolic pressure is 35 mmHg. Left atrium is mildly dilated. The right atrium size is normal. Probable trileaflet AV appears sclerotic and mildly calcified. No stenosis or insufficiency. Mild MV annular and Chord thickening. No stenosis. Mild regurgitation. Normal pericardium. No pericardial effusion seen.
[2024-09-04] MEDS: Melatonin 3mg tablet PO PRN (21:09)
[2024-09-04] MEDS: amiodarone 200mg tablet PO SCH (22:35)
[2024-09-05] VITALS (14 sets, daily range): BP systolic 126–157; BP diastolic 50–70; PULSE 53–84; RESP 11–20; TEMP 97.2–98.1; O2SAT 93–98
[2024-09-05 07:04] LABS: BASOPHILS # (AUTO) 0.1 X10'3 (0-0.2); BASOPHILS % (AUTO) 1.4 % (0-1); EOSINOPHILS # (AUTO) 0.3 X10'3 (0-0.9); EOSINOPHILS % (AUTO) 3.8 % (0-6); HEMATOCRIT 38.5 % (42.0-52.0); HEMOGLOBIN 12.5 g/dl (14.0-17.9); LYMPHOCYTES # (AUTO) 2.4 X10'3 (1.1-4.8); LYMPHOCYTES % (AUTO) 30.9 % (21-51); MEAN CORPUSCULAR HEMOGLOBIN 25.5 PG (27.0-31.0); MEAN CORPUSCULAR HGB CONC 32.5 g/dL (33.0-36.5); MEAN CORPUSCULAR VOLUME 78.5 FL (78-98); MEAN PLATELET VOLUME 8.5 FL (7.4-10.4); MONOCYTES # (AUTO) 0.4 X10'3 (0-0.9); MONOCYTES % (AUTO) 5.7 % (2-12); NEUTROPHILS # (AUTO) 4.6 X10'3 (1.8-7.7); NEUTROPHILS % (AUTO) 58.2 % (42-75); PLATELET COUNT 288 X10'3 (140-440); RED BLOOD COUNT 4.91 X10'6 (4.70-6.10); RED CELL DISTRIBUTION WIDTH 16.1 % (11.5-14.5); WHITE BLOOD COUNT 7.8 X10'3 (4.5-11.0)
[2024-09-05 07:26] LABS: ALANINE AMINOTRANSFERASE 11 U/L (12-78); ALBUMIN 3.3 G/DL (3.4-5.0); ALKALINE PHOSPHATASE 69 IU/L (46-116); ANION GAP 8 (8-16); ASPARTATE AMINO TRANSFERASE 14 U/L (10-37); BILIRUBIN,TOTAL 0.3 MG/DL (0.1-1.0); BLOOD UREA NITROGEN 13 MG/DL (7-18); BUN/CREATININE RATIO 19.1 (10.0-20.0); CALCIUM 8.7 MG/DL (8.5-10.1); CHLORIDE 105 MMOL/L (99-107); CREATININE 0.68 MG/DL (0.60-1.10); GLUCOSE 117 MG/DL (70-104); POTASSIUM 3.4 MMOL/L (3.5-5.1); SODIUM 143 MMOL/L (135-145); TOTAL CARBON DIOXIDE 30.4 MMOL/L (24-32); TOTAL PROTEIN 6.6 G/DL (6.4-8.2); eCRCL 87 ML/MIN; eGFR > 90 ML/MIN
[2024-09-05] MEDS: nicotine 14mg patch - 24hr TD SCH (09:05)
[2024-09-05] MEDS: aspirin 81mg, enteric-coated 1 TAB TABLET.DR PO SCH (09:06)
[2024-09-05] MEDS: simvastatin 20mg tablet PO SCH (09:07)
[2024-09-05] MEDS: potassium Cl 20 mEq SR tablet PO PRN (09:13)
--- NOTE | 2024-09-05 16:51 | PROGRESS NOTE- Residence ---
Progress Note - Resident Providers to CC Resident Creating Document: MUSHTAQ EMERY RES ~ Central Line/PICC still needed: No Laguerre-Non Protocol Laguerre Indications Met/Not Met: F/C Indications Not Met Antibiotic Timeout Antibiotic Ordered?: No Subjective Patient comfortable at bedside. No acute overnight events. Patient has had trouble with obtaining his medications leading to the acuity of symptoms in addition to the ongoing stresses in his personal life, working with the case management specialist and social workers to obtain his medications and discharge planning accordingly. Objective Vital Signs Date Time Temp Pulse Resp B/P (MAP) Pulse Ox O2 Delivery O2 Flow Rate FiO2 09/05/24 13:09 97.8 84 20 157/67 (97) 97 Room Air 09/05/24 11:02 0.0 09/05/24 10:56 21 Result Diagram: 09/05/24 0639 09/05/2439 General: Awake and Alert, no acute distress. HEENT: Conjunctiva pink, Sclera clear, Mucus Membranes moist. Resp: Unlabored. Bilateral basilar Crepts present Heart: Regular Rate and rhythm, normal S1 and S2, pansystolic aortic murmur and no rubs or gallops. Abdomen: Soft and non tender no organomegaly Extremities: No cyanosis,clubbing or edema. Skin: Warm and Dry. Coagulation Studies Laboratory Tests Test 09/03/24 22:49 Prothrombin Time 10.7 SECONDS (9.0-12.0) INR International Normalized Ratio 1.0 INR Activated Partial Thromboplast Time 25 SECONDS (22-32) D-Dimer 0.35 MG/L FEU (0-0.50) D-Dimer Comment Coagulation Comments Assessment Assessment 69-year-old male past medical history of coronary artery disease status post CABG, hypertension, hyperlipidemia, type 2 diabetes mellitus is admitted in the hospital for evaluation management of ventricular tachycardia, hypokalemia. Plan Plan 1. Ventricular tachycardia: Secondary to hypokalemia Telemetry reported occasional PVC's, heart rate in 60s. No reported V-tach further on the telemetry monitoring. Hemodynamically stable Stopped amiodarone drip, switched to p.o. amiodarone last night Maintain potassium greater than 4.5 and magnesium greater than 2 Continue Coreg 6.25 mg and amiodarone, follow up outpatient with Dr. Christensen 2. Coronary artery disease: Status post CABG in 2015 Recent history of recurrence of CAD with multivessel disease; noncompliance with follow up and medication Troponins negative Echocardiogram reveals mid and basal inferolateral segments revealing hypokinesis to akinesis Consulted Dr. Christensen, reports that these findings are chronic and the patient has not followed up with him for any interventions. Dr. Christensen has seen him last three years ago due to which patient kindly has no peanut separator Continue aspirin, Coreg and statin 3. Hypertension: Continue home medications of lisinopril, Coreg and amlodipine. Moderately well-controlled blood pressures here 4. Diabetes mellitus: Patient is started on his home dose of Lantus 25 units subQ daily. Continue sliding scale insulin as well A1c 7.8 CODE STATUS: Full code DVT prophylaxis: SCDs underlying ambulatory GI prophylaxis: Protonix Diet: Carb controlled diet Disposition: Once medications accessibility is available, patient can be discharged back home. Mushtaq Emery PGY2, Internal medicine resident Date of Service: September 05, 2024 Billing Provider: MAURICE RASCON MD, DEEPANJALI, RES September 05, 2024 16:51
[2024-09-06 02:00] VITALS: BP 133/46; PULSE 54; RESP 19; TEMP 97.2; O2SAT 94
[2024-09-06 07:00] VITALS: BP 151/56; PULSE 58; RESP 14; TEMP 97.1; O2SAT 98
[2024-09-06 07:08] LABS: BASOPHILS # (AUTO) 0.1 X10'3 (0-0.2); EOSINOPHILS # (AUTO) 0.3 X10'3 (0-0.9); EOSINOPHILS % (AUTO) 4.2 % (0-6); HEMATOCRIT 38.1 % (42.0-52.0); HEMOGLOBIN 12.3 g/dl (14.0-17.9); LYMPHOCYTES # (AUTO) 2.7 X10'3 (1.1-4.8); LYMPHOCYTES % (AUTO) 37.2 % (21-51); MEAN CORPUSCULAR HEMOGLOBIN 25.5 PG (27.0-31.0); MEAN CORPUSCULAR HGB CONC 32.3 g/dL (33.0-36.5); MEAN CORPUSCULAR VOLUME 79.1 FL (78-98); MEAN PLATELET VOLUME 8.8 FL (7.4-10.4); MONOCYTES # (AUTO) 0.4 X10'3 (0-0.9); MONOCYTES % (AUTO) 5.1 % (2-12); NEUTROPHILS # (AUTO) 3.8 X10'3 (1.8-7.7); NEUTROPHILS % (AUTO) 52.5 % (42-75); PLATELET COUNT 258 X10'3 (140-440); RED BLOOD COUNT 4.82 X10'6 (4.70-6.10); RED CELL DISTRIBUTION WIDTH 16.3 % (11.5-14.5); WHITE BLOOD COUNT 7.2 X10'3 (4.5-11.0)
[2024-09-06 07:18] VITALS: PULSE 56; RESP 16; O2SAT 98
[2024-09-06 07:19] VITALS: PULSE 58; RESP 18
[2024-09-06 07:24] LABS: ALANINE AMINOTRANSFERASE 12 U/L (12-78); ALBUMIN 3.2 G/DL (3.4-5.0); ALKALINE PHOSPHATASE 65 IU/L (46-116); ANION GAP 7 (8-16); ASPARTATE AMINO TRANSFERASE 19 U/L (10-37); BILIRUBIN,TOTAL 0.2 MG/DL (0.1-1.0); BLOOD UREA NITROGEN 16 MG/DL (7-18); BUN/CREATININE RATIO 22.9 (10.0-20.0); CALCIUM 8.3 MG/DL (8.5-10.1); CHLORIDE 103 MMOL/L (99-107); GLUCOSE 112 MG/DL (70-104); POTASSIUM 3.8 MMOL/L (3.5-5.1); SODIUM 139 MMOL/L (135-145); TOTAL CARBON DIOXIDE 29.1 MMOL/L (24-32); TOTAL PROTEIN 6.4 G/DL (6.4-8.2); eCRCL 85 ML/MIN; eGFR > 90 ML/MIN
[2024-09-06 08:00] VITALS: RESP 14; O2SAT 98
[2024-09-06 11:00] VITALS: BP 156/57; PULSE 69; RESP 25; TEMP 97.6; O2SAT 98
[2024-09-06] MEDS ORDERED: AMIO200T67 PO (12:09)
[2024-09-06] MEDS ORDERED: AMI200T PO (12:09)
--- NOTE | 2024-09-06 16:56 | DISCHARGE SUMMARY-Residence ---
Discharge Summary Providers to CC Resident Creating Document: CHRISTINAPABLOJOHNSONNEVAEH GREEN ~ Discharge Summary Admission Diagnosis: [facility] Hospital Course DATE OF ADMISSION: 09/03/24 DATE OF DISCHARGE: 09/06/2024 Discharge Diagnosis\Comment: Paroxysmal Ventricular tachycardia secondary to hypokalemia; resolved CAD status post history of CABG in 2014 Known inferior wall ischemic changes; Noncompliance with medications and follow up Type 2 diabetes mellitus moderately controlled Hypertension Operations\Procedures: None Consultants: Dr. Yousif, Cardiology Complications: None Condition on DC: Stable for transfer New Medications: Amiodarone HCl (Amiodarone HCl) 200 Mg Tablet 1 TAB PO DAILY for 30 Days, #30 TAB 0 Refills Amiodarone Hcl (Cordarone) 200 Mg Tablet 200 MG PO BID for 14 Days, #28 TAB 200 mg twice a day for the initial 14 days, drop it to 200 mg daily afterwards Continued Medications: Albuterol Sulfate (Albuterol Sulfate) 2.5 Mg/0.5 Ml Vial.neb 1 VIAL NEB Q4H, VIAL Albuterol Sulfate (Proventil Hfa) 6.7 Gm Hfa.aer.ad 2 PUFFS INH Q4H, INHALER Amlodipine Besylate (Amlodipine Besylate) 10 Mg Tablet 1 TABLET PO DAILY, TABLET Aspirin (Aspir 81) 81 Mg Tablet.dr 1 TABLET PO DAILY, TABLET Benazepril HCl (Benazepril HCl) 40 Mg Tablet 1 TABLET PO DAILY, TABLET Carvedilol (Coreg) 6.25 Mg Tablet 1 TAB PO BID, TAB Citalopram Hydrobromide (Citalopram Hbr) 20 Mg Tablet 1 TABLET PO DAILY, TABLET Hydrochlorothiazide (Hydrochlorothiazide) 12.5 Mg Capsule 1 CAP PO DAILY, CAP Hydrocodone Bit/Acetaminophen ([place] 10-325 Tablet) 1 Each Tablet 1-2 TABLET PO Q4H, TABLET Insulin Glargine,Hum.rec.anlog (Lantus Solostar) 300 Unit/3 Ml Insuln.pen 25 UNIT SQ DAILY, VIAL Loratadine (Loratadine) 10 Mg Tablet 1 TABLET PO DAILY, TABLET Meloxicam (Meloxicam) 15 Mg Tablet 1 TABLET PO DAILY, TABLET Niacin* (Niaspan*) 500 Mg Tablet 1 TAB PO BID, TAB Omeprazole (Omeprazole) 20 Mg Tablet.dr 20 MG PO BID, TAB.SR Simvastatin (Simvastatin) 40 Mg Tablet 40 MG PO DAILY, TAB Zolpidem Tartrate* (Ambien*) 10 Mg Tablet 1 TAB PO HS PRN for sleep, TAB Discharge Summary: 69-year-old male patient with a past medical history of CAD status post CABG, hypertension, hyperlipidemia, and type 2 diabetes mellitus presented to the hospital with complaints of dizziness and intermittent episodes of chest pain. While in the ER, the monitor had revealed that the patient had an episode of ventricular tachycardia during which he felt lightheaded and diaphoretic. Also reported symptoms of central chest pressure. Patient had lost his insurance coverage for his medications due to which he has not been taking any medications over the last couple of weeks. The on-call z os mainframe systems programmer, Dr. Yousif had evaluated the patient and started the patient on amiodarone drip for 24 hours. His admission potassium was 2.8 which was corrected as per the replacement protocol. Magnesium was also replaced. Since the correction of the electrolytes, patient has had no further recurrence of episodes. Telemetry monitoring revealed no further episodes of V-tach. EKG and telemetry has been stable for occasional PVCs. Echocardiogram revealed presence of inferior wall ischemic changes. His known [employer] os mainframe systems programmer Dr. Christensen was consulted who had reported that the patient had not followed up with him for the last three years and the findings on the echocardiogram has been persistent since then. As per the conversation Cardiology. benchroom shop optician were consulted to be able to help the patient received his medications. The rest of his chronic medical problems including hypertension and type 2 diabetes mellitus with managed. After developing a steady plan, the patient was discharged back home. Advised at discharge: Kindly take all your medications as prescribed. We are sending it to the [facility] pharmacy so you can take it to as per the plan that we have discussed. Kidnly follow up with your primary care providered within 1-2 weeks. Repeat cbc and cmp in 1-2 weeks. Follow up with them to continue prescribing your medications. You need to be seen by a [employer] os mainframe systems programmer as soon as possible for your underlying conditions and need to be closely followed up with them. Maintenance of compliance with medications is of utmost importance. With the condition you came in with there is a high chance of sudden cardiac as well. Refrain from smoking completely as this can increase and worsen your existing cardiac disease. If you have recurrence of symptoms, chest pain, presyncope or syncopal episode, kindly return back to the ER. Physical exam at discharge: General: Awake and Alert, no acute distress. HEENT: Conjunctiva pink, Sclera clear, Mucus Membranes moist. Resp: Unlabored. Bilateral basilar Crepts present Heart: Regular Rate and rhythm, normal S1 and S2, pansystolic aortic murmur and no rubs or gallops. Abdomen: Soft and non tender no organomegaly Extremities: No cyanosis,clubbing or edema. Skin: Warm and Dry. Labs at discharge: WBC 7.2, RBC 4.8, hemoglobin 12.3, platelet 258 Sodium 139, potassium 3.8, chloride 103, bicarb 29.1, BUN 16, creatinine 0.7, blood glucose 112 Medications at discharge: Amiodarone 200 mg b.i.d. for 14 days followed by 200 mg daily, albuterol nebulization, Proventil, aspirin, Norvasc 10 mg, benazepril 40 mg, Coreg 6.25 mg, citalopram 20 mg, hydrochlorothiazide 12.5 mg, [place] 10 daily q.4 hours PRN, Lantus, loratadine, meloxicam, niacin, omeprazole, simvastatin, zolpidem 10 mg *Problems/Diagnosis: (1) Ventricular tachycardia (paroxysmal) Status: Acute Total Time Spent on D/C: > 30 Minutes Counseling Services Smoking & Tobacco Cessation: 3-10 Minutes Date of Service: September 06, 2024 Billing Provider: CARLTON LIN MD Common Visit Codes: 36575-SLP/OBS DISCH DAY >30min PETER CRENSHAW RES September 06, 2024 16:55 CARLTON LIN MD September 06, 2024 19:27
== END 2024-09-06 14:00 | disposition home or self-care (01) | DRG 641 ==
LOC: ER 20:14 → ED HOLD 09-04 04:27 → PCU 3S 09-04 10:25
PROVIDERS: ADMIT Internal Medicine; ATTEND Internal Medicine
DX: E87.6 Hypokalemia (principal); I47.29 Other ventricular tachycardia; E78.5 Hyperlipidemia, unspecified; E11.9 Type 2 diabetes mellitus without complications; E83.42 Hypomagnesemia; I25.9 Chronic ischemic heart disease, unspecified; F17.210 Nicotine dependence, cigarettes, uncomplicated; I10 Essential (primary) hypertension; I25.10 Atherosclerotic heart disease of native coronary artery without angina pectoris; Z95.1 Presence of aortocoronary bypass graft; Z79.82 Long term (current) use of aspirin; Z79.899 Other long term (current) drug therapy; Z79.4 Long term (current) use of insulin; Z91.148 Patient's other noncompliance with medication regimen for other reason; Z95.5 Presence of coronary angioplasty implant and graft
CPT/HCPCS: 36415; 71045; 80048; 80053; 82948; 83036; 83735; 83880; 84439; 84443; 84484; 85025; 85379; 85610; 85730; 87081; 93005; 93306; 94640; 94760; 96365; 99291; G0378; J0282; J1815; J3480